=== PATIENT | male | born 1985 | race Caucasian/White ===

== ENCOUNTER 2021-03-14 15:00 | Outpatient (CLI) | payer OTHER, SELFPAY ==
--- NOTE | ~2021-03-14 | XR_ITS ---
XR hip RT 2V w AP pelvis DATE: 03/14/2021 15:20 INDICATION: Right hip pain. Previous injury. TECHNIQUE: AP pelvis. AP and lateral views of right hip. COMPARISON: None FINDINGS: There is a linear lucency and slight offset of the cortex the proximal anterolateral right femoral shaft suggesting a subtle nondisplaced recent fracture. There is a long lateral right femoral sideplate with compression screw extending into the femoral hea d, transfixed by 6 transverse screws along the proximal femoral shaft. 2 additional antral fistula di rected screws through the proximal right femoral shaft. There is lucency along the neck of the right femoral fixation device in the intertrochanteric area wh ich may indicate loosening. The pubic symphysis and sacroiliac joints are intact. No pelvic fracture or bone destruction is detec lianet. 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
[2021-03-14 20:13] LABS: Hematocrit 47.4 % (42.0-52.0); Hemoglobin 15.8 g/dL (14.0-18.0); Mean Corpuscular HGB Conc 33.3 g/dl (32-36); Mean Corpuscular Hemoglobin 31.2 pg (26-34); Mean Corpuscular Volume 93.5 fl (80-100); Mean Platelet Volume 9.4 fl (7.4-10.4); Platelet Count Result 320 k/mm3 (150-375); Red Blood Count 5.07 M/mm3 (4.6-6.20); Red Cell Distribution Width 12.7 % (11.5-14.5); White Blood Count 11.2 K/mm3 (4.5-10.0)
[2021-03-14 20:14] LABS: Alanine Aminotransferase 18 U/L (4-50); Albumin Level 4.3 g/dL (3.5-5.1); Alkaline Phosphatase 81 U/L (38-126); Anion Gap 6 mmol/L (8-16); Aspartate Amino Transferase 28 U/L (17-59); Bilirubin,Total 0.2 mg/dL (0.2-1.3); Blood Urea Nitrogen 21 mg/dL (9-20); Calcium 9.3 mg/dL (8.4-10.2); Carbon Dioxide 27 mmol/L (22-30); Chloride 105 mmol/L (98-107); Cholesterol 172 mg/dL (0-200); Estimated Glomerular Filt Rate > 60; Glucose 99 mg/dL (65-110); HDL Direct 52 mg/dL; Potassium 4.3 mmol/L (3.4-5.0); Sodium 138 mmol/L (137-145); Triglycerides 166 mg/dL (<150)
[2021-03-14 20:25] LABS: LDL Cholesterol Direct 107 mg/dL
== END 2021-03-14 15:01 | disposition home or self-care (01) ==
LOC: ANHBWCLAB 15:03
PROVIDERS: PCP Family Medicine; Visit Provider Family Medicine
DX: Z00.00 Encounter for general adult medical examination without abnormal findings (principal); M19.90 Unspecified osteoarthritis, unspecified site; F41.9 Anxiety disorder, unspecified; F90.9 Attention-deficit hyperactivity disorder, unspecified type; I10 Essential (primary) hypertension; K21.9 Gastro-esophageal reflux disease without esophagitis; S72.391A Other fracture of shaft of right femur, initial encounter for closed fracture
CPT/HCPCS: 36415; 73502; 80053; 80061; 85027

== ENCOUNTER 2021-04-08 12:00 | Outpatient (CLI) | payer OTHER, SELFPAY ==
--- NOTE | ~2021-04-08 | XR_ITS ---
XR hip BI 2V w AP pelvis DATE: 04/08/2021 12:16 INDICATION: Hip pain TECHNIQUE: AP pelvis. AP and lateral views of each hip. COMPARISON: 03/14/2021 pelvis and right hip FINDINGS: The pubic symphysis and sacroiliac joints are intact. No pelvic fracture or bone destructio n is detected. Mild bilateral hip osteoarthritis. Hip joint spaces are symmetric and relatively preserved. No fracture, dislocation, avascular necrosis or bone destruction of the left hip is detected. Compression screw device with long side plate along the lateral proximal to mid femoral shaft is note d in addition to a couple of anteroposteriorly directed subtrochanteric right femoral screws. There i s some lucency along the hardware in the intertrochanteric area which may indicate some loosening. There is a small cortical bony projection along the proximal anterior shaft of the left femur which a ppears stable since 03/14/2021. No intervening periosteal new bone formation is noted. IMPRESSION: No significant change in appearance since 03/14/2021 Reviewed, dictated and finalized at location A. 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
== END 2021-04-08 12:01 | disposition home or self-care (01) ==
PROVIDERS: PCP Family Medicine; Visit Provider Family Medicine
DX: M25.559 Pain in unspecified hip (principal); S72.009A Fracture of unspecified part of neck of unspecified femur, initial encounter for closed fracture; Z98.890 Other specified postprocedural states
CPT/HCPCS: 73521

== ENCOUNTER 2021-06-17 11:29 | Outpatient (CLI) | payer OTHER, SELFPAY ==
--- NOTE | ~2021-06-17 | XR_ITS ---
EXAM: XR lumbar spine 2-3V HISTORY: chronic low back/ rt hip pain, rt hip surg in 2000 COMPARISON: None available FINDINGS: 5 nonrib-bearing lumbar-type vertebral bodies. Pedicles intact. Normal vertebral body alig nment. Vertebral body heights preserved. Apparent lucency over L4 likely represents artifact from bow el gas. Disc spaces maintained. Normal facets and posterior elements. IMPRESSION: Normal lumbar spine radiograph findings. Reviewed, dictated and finalized at location K.
== END 2021-06-17 11:30 | disposition home or self-care (01) ==
LOC: ANHBWCIMG 11:31
PROVIDERS: PCP Family Medicine; Visit Provider Family Medicine
DX: M54.50 Low back pain, unspecified (principal)
CPT/HCPCS: 72100

== ENCOUNTER 2022-12-18 14:53 | Outpatient (CLI) | payer OTHER, SELFPAY ==
[2022-12-18 18:47] LABS: Alanine Aminotransferase 17 U/L (6-50); Alkaline Phosphatase 68 U/L (38-126); Anion Gap 1 mmol/L (8-16); Aspartate Amino Transferase 62 U/L (17-59); Bilirubin,Total 0.6 mg/dL (0.2-1.3); Blood Urea Nitrogen 16 mg/dL (9-20); Calcium 8.4 mg/dL (8.4-10.2); Carbon Dioxide 31 mmol/L (22-30); Chloride 104 mmol/L (98-107); Cholesterol 163 mg/dL (0-200); Estimated Glomerular Filt Rate > 60; Glucose 95 mg/dL (65-110); HDL Direct 35 mg/dL; Potassium 4.3 mmol/L (3.4-5.0); Sodium 136 mmol/L (137-145); Triglycerides 114 mg/dL (<150)
[2022-12-18 18:58] LABS: LDL Cholesterol Direct 94 mg/dL
[2022-12-18 19:08] LABS: Basophils Absolute Auto 0.1 K/mm3 (0.0-0.1); Basophils Percent Auto 0.8 % (0.2-1.2); Eosinophils Absolute Auto 0.3 K/mm3 (0-0.3); Eosinophils Percent Auto 4.1 % (0-4.4); Hematocrit 50.2 % (42.0-52.0); Hemoglobin 16.3 g/dL (14.0-18.0); Immature Granulocyte Absolute 0.07 K/mm3 (0.00-0.031); Lymphocytes Absolute Auto 2.68 K/mm3 (0.9-3.2); Lymphocytes Percent Auto 37.8 % (18.3-44.2); Mean Corpuscular HGB Conc 32.5 g/dl (32-36); Mean Corpuscular Hemoglobin 30.3 pg (26-34); Mean Corpuscular Volume 93.3 fl (80-100); Mean Platelet Volume 9.5 fl (7.4-10.4); Monocytes Absolute Auto 0.6 K/mm3 (0.1-0.6); Monocytes Percent Auto 8.7 % (2.6-8.5); Neutrophils Absolute Auto 3.4 K/mm3 (1.3-6.7); Neutrophils Percent Auto 47.6 % (45.5-73.1); Platelet Count Result 335 k/mm3 (150-375); Red Blood Count 5.38 M/mm3 (4.6-6.20); Red Cell Distribution Width 12.2 % (11.5-14.5); White Blood Count 7.1 K/mm3 (4.5-10.0)
== END 2022-12-18 14:54 | disposition home or self-care (01) ==
LOC: ANHBWCLAB 14:55
PROVIDERS: PCP Nurse Practitioner Adult Health; Visit Provider Family Medicine
DX: Z00.00 Encounter for general adult medical examination without abnormal findings (principal); F41.9 Anxiety disorder, unspecified; I10 Essential (primary) hypertension
CPT/HCPCS: 36415; 80053; 80061; 85025

== ENCOUNTER 2023-01-29 10:29 | Outpatient (CLI) | payer OTHER, SELFPAY ==
[2023-01-29 19:16] LABS: Basophils Absolute Auto 0.1 K/mm3 (0.0-0.1); Basophils Percent Auto 0.5 % (0.2-1.2); Eosinophils Absolute Auto 0.3 K/mm3 (0-0.3); Eosinophils Percent Auto 2.8 % (0-4.4); Hematocrit 50.9 % (42.0-52.0); Immature Granulocyte Absolute 0.06 K/mm3 (0.00-0.031); Immature Granulocyte Percent A 0.6 % (0-0.5); Lymphocytes Absolute Auto 2.63 K/mm3 (0.9-3.2); Lymphocytes Percent Auto 24.6 % (18.3-44.2); Mean Corpuscular HGB Conc 33.4 g/dl (32-36); Mean Corpuscular Hemoglobin 30.6 pg (26-34); Mean Corpuscular Volume 91.5 fl (80-100); Mean Platelet Volume 9.7 fl (7.4-10.4); Monocytes Absolute Auto 0.6 K/mm3 (0.1-0.6); Monocytes Percent Auto 5.4 % (2.6-8.5); Neutrophils Absolute Auto 7.1 K/mm3 (1.3-6.7); Neutrophils Percent Auto 66.1 % (45.5-73.1); Platelet Count Result 341 k/mm3 (150-375); Red Blood Count 5.56 M/mm3 (4.6-6.20); White Blood Count 10.7 K/mm3 (4.5-10.0)
== END 2023-01-29 10:30 | disposition home or self-care (01) ==
LOC: ANHBWCLAB 10:30
PROVIDERS: PCP Nurse Practitioner Adult Health; Visit Provider Nurse Practitioner Adult Health
DX: R79.89 Other specified abnormal findings of blood chemistry (principal)
CPT/HCPCS: 36415; 85025

== ENCOUNTER 2023-03-12 11:36 | Outpatient (CLI) | payer OTHER, SELFPAY ==
--- NOTE | ~2023-03-12 | XR_ITS ---
EXAMINATION: XR mandible min 4V DATE: 03/12/2023 12:00 INDICATION: Periapical abscess without sinus. TECHNIQUE: 4 views of the mandible were obtained. COMPARISON: None. FINDINGS: Bone alignment is normal. No fracture. The temporomandibular joints are normal. IMPRESSION: 1. No fracture. Reviewed, dictated and finalized at location A. 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 No fracture.
--- NOTE | ~2023-03-12 | XR_ITS ---
EXAMINATION: XR facial bones min 3V DATE: 03/12/2023 12:00 INDICATION: Periapical abscess without sinus. TECHNIQUE: 5 views of the facial bones were obtained. COMPARISON: None. FINDINGS: Bone alignment is normal. No fracture. IMPRESSION: 1. No fracture. 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 No fracture.
== END 2023-03-12 11:37 | disposition home or self-care (01) ==
LOC: ANHBWCIMG 11:37
PROVIDERS: PCP Nurse Practitioner Adult Health; Visit Provider Nurse Practitioner Adult Health
DX: K04.7 Periapical abscess without sinus (principal)
CPT/HCPCS: 70110; 70150